=== PATIENT | male | born 1970 | race Two or more races ===

== ENCOUNTER 2024-02-20 14:05 | Outpatient (REF) | payer MEDICAID, OTHER, SELFPAY ==
--- NOTE | ~2024-02-20 | US_ITS ---
EXAMINATION: US LEFT INGUINAL AREA, LIMITED CLINICAL INFORMATION: Suspected left inguinal hernia COMPARISON: None available. TECHNIQUE: Ultrasound the left inguinal canal and left upper thigh (per patient area of pain) FINDINGS: Ultrasound of the left upper thigh in the area of pain indicated by the patient as well as the left inguinal canal demonstrates no sonographic abnormality. US/US pelvic limited IMPRESSION: No sonographic abnormality.
== END 2024-02-20 14:06 | disposition home or self-care (01) ==
LOC: HO.US 14:05
PROVIDERS: PCP Internal Medicine; Visit Provider Internal Medicine
DX: K40.90 Unilateral inguinal hernia, without obstruction or gangrene, not specified as recurrent (principal)
CPT/HCPCS: 76857